=== PATIENT | male | born 1975 | race Caucasian/White ===

== ENCOUNTER 2018-09-27 14:12 | Inpatient (IN) | payer BC ==
[~2018-09-27] VITALS: Ht 180.3 cm; Wt 117.1 kg
--- NOTE | ~2018-09-27 | CON ---
[address] [address] CONSULTATION Name: NAKITA COATES Room: [address] IN .R.#: [id number] Admission: 09/27/18 Attend Phys: Nicholas Cordova MD Discharge: 09/28/18 Date of : 77 Report #: [id number] THIS REPORT FOR: //name// CC: Physician staff TACOS Cordova DATE OF SERVICE: 09/28/2018 HISTORY OF PRESENT ILLNESS: This is a 43-year-old male patient who was seen by me to evaluate the patient for any neurological etiology for the patient's episode of passing out. The patient, in fact, had 3 episodes of passing out in a month and he may have passed out more than one time. I reviewed all the records and talked to the patient. He was able to slowly go down during this episode. He was not confused after this episode and he immediately came back to the baseline. He was flushed and diaphoretic during this episode. When the EMS came, his blood pressure was only 90 systolic. He does not know what his blood pressure was during other episodes. REVIEW OF SYSTEMS: Indicate that he is usually pretty healthy. He takes pain medication for the back. He has not taken any of those medications for a long time. His 14-point review of system was mostly unremarkable. PAST MEDICAL HISTORY: Positive for these episodes, but it happened this month only. FAMILY HISTORY: Pretty significant for cardiac problem on the mother's side and multiple members in the family have in early ages and he is going to have a Cardiology consult. SOCIAL HISTORY: He smokes very rarely and he drinks alcohol also very rarely. He feels back to his baseline. PHYSICAL EXAMINATION: GENERAL: His examination indicates he is alert, responsive. NEUROLOGIC: His speech, concentration, fund of knowledge and memory are at his baseline. Cranial nerve examination 2-12 is unremarkable. His strength, sensation, reflexes and cerebellar signs are unremarkable. He has no papilledema. CARDIAC EXAMINATION: Appears unremarkable. LUNGS: He has no respiratory difficulty. VITAL SIGNS: His blood pressure is 125/75. His pulse is 67 and temperature is 98.1. LABORATORY DATA: His white count is 6.5. He did not have any [place] [address] CONSULTATION Name: JANENENAKITA DICK Herlinda Room: [address]#: [id number] Admission: 09/27/18 Attend Phys: Nicholas Cordova MD Discharge: 09/28/18 Date of : 77 Report #: [id number] IMPRESSION AND PLAN: This patient's spell is most likely cardiac. This is especially true with such an extensive family history. His blood pressure was actually low when he was seen and if he has a seizure or TIA typically, his blood pressure should go high. He does complain of some nonspecific brain symptoms and he did pass out and because of that, it may be desirable to do the MRI to make sure there is no etiology there. He already had an EEG. I discussed the MRI with him. I discussed his potential complication. He said he had some metal in his teeth and titanium from the vasectomy. I told him to make sure he lets the MRI people know that. They are going to fill up a questionnaire anyway. If that workup is unremarkable, main workup is going to be Cardiology in this patient. Thank you very much for this referral. We will follow this patient along with you. By: 1150 [id number] Gomez MD /lamonte
--- NOTE | ~2018-09-27 | EEG ---
[address] [address] EEG STUDY REPORT Name: NAKITA COATES Room: [address] IN M.R.#: [id number] Admission: 09/27/18 Attend Phys: Nicholas Cordova MD Discharge: 09/28/18 Date of : 77 Report #: [id number] THIS REPORT FOR: //name// CC: Physician staff TACOS Cordova DATE OF SERVICE: 09/28/2018 This patient is being evaluated for syncope. EEG was done by placing the electrodes by standard 10-20 system of electrode placement. Both referential and sequential montages were used for recording. Background activity in this patient's EEG is about 9 Hz and 30 microvolt. The patient became drowsy that is associated with bilateral slowing and vertex sharp waves. Photic stimulation was unremarkable. Throughout the record, no active epileptiform activity was noticed. IMPRESSION: This patient's EEG is within normal limits. Thank you very much for this referral. By: 1639 2055Claudy Gomez MD /nt
[2018-09-27 14:13] VITALS: BP 132/73
[2018-09-27 14:54] LABS: ABSOLUTE BASOPHILS 0.1 thou/uL (0.0-0.2); ABSOLUTE EOSINOPHILS 0.1 thou/uL (0.0-0.7); ABSOLUTE LYMPHOCYTES 1.6 thou/uL (0.8-5.3); ABSOLUTE MONOCYTES 0.4 thou/uL (0.0-1.2); ABSOLUTE NEUTROPHILS 3.3 thou/uL (1.6-8.1); BASOPHILS 1.1 %; EOSINOPHILS 1.4 %; HEMATOCRIT 43.6 % (42.0-52.0); HEMOGLOBIN 15.3 gm/dL (14.0-18.0); LYMPHOCYTES 29.5 %; MCH 30.4 pg (26.0-34.0); MCV 86.8 fL (80.0-100.0); MONOCYTES 6.9 %; MPV 8.9 fl. (7.2-11.1); NUCLEATED RBCS 0 /100WBC; PLATELET COUNT* 215 thou/uL (150-400); POLYS 61.1 %; RBC 5.03 mil/uL (4.50-6.00); RDW-CV 13.4 % (10.5-14.5); WBC 5.4 thou/uL (4.0-11.0)
[2018-09-27 15:12] LABS: ALBUMIN 3.8 g/dL (3.4-5.0); ALKALINE PHOSPHATASE 70 U/L (46-116); ANION GAP 12 mmol/L (7-16); BUN 13 mg/dL (7-18); CALCIUM 8.8 mg/dL (8.5-10.1); CHLORIDE 103 mmol/L (98-107); CO2 26 mmol/L (21-32); CREATININE 1.5 mg/dL (0.6-1.3); GLUCOSE 129 mg/dL (70-99); LIPASE 116 U/L (73-393); POTASSIUM 3.9 mmol/L (3.5-5.1); SGOT 28 U/L (15-37); SGPT 59 U/L (30-65); SODIUM 141 mmol/L (136-145); TOTAL BILIRUBIN 0.4 mg/dL (<0.1-1.0); TOTAL PROTEIN 7.9 g/dL (6.4-8.2); TROPONIN-I LEVEL <0.06 ng/mL (<0.06)
[2018-09-27 15:44] LABS: APTT 25.8 Seconds (25.0-31.3); PROTIME 10.3 Seconds (9.20-11.50)
[2018-09-27 15:53] LABS: URINE BILIRUBIN NEGATIVE (Negative); URINE BLOOD NEGATIVE (Negative); URINE CLARITY CLEAR; URINE COLOR YELLOW; URINE GLUCOSE-RANDOM NEGATIVE (Negative); URINE KETONES NEGATIVE (Negative); URINE LEUKOCYTES-REFLEX NEGATIVE (Negative); URINE NITRITE-REFLEX NEGATIVE (Negative); URINE PROTEIN NEGATIVE (Negative); URINE UROBILINOGEN 0.2 E.U./dl (0.2-1.0)
[2018-09-27 16:01] LABS: AMP/METHAMP Negative (Negative); BARBITURATES Negative (Negative); BENZODIAZEPINES Negative (Negative); COCAINE Negative (Negative); METHADONE Negative (Negative); OPIATES Negative (Negative); PCP Negative (Negative); THC POSITIVE (Negative)
[2018-09-27 16:57] VITALS: BP 141/85
--- NOTE | 2018-09-27 16:57 | NUR ---
REPORT TO WALTER RAMIREZ
[2018-09-27 17:15] VITALS: BP 148/85
[2018-09-27] MEDS ORDERED: HYDROCODON-ACE1 EAC8 PO (18:04)
--- NOTE | 2018-09-27 18:41 | NUR ---
RECEIVED REPORT FROM EDITH IN ER. PT ARRIVED TO TELE FLOOR AROUND 1715, ASSUMED CARE. PT A&OX4, VSS. CLIENT SUCCESS DIRECTOR PLACED TRACING SR. ADMISSION ASSESSMENT, HISTORY AND EDUCATION COMPLETED CHARTED. PT DENIES PAIN OR DISCOMFORT. IV TO R AC INTACT AND INFUSING IVF. PT VERY STEADY ON FEET AND DOES NOT FEEL DIZZY AT THIS TIME, BUT FALL PRECAUTIONS IN PLACE FOR SAFETY. FAMILY AT BEDSIDE. PT TO BE NPO AFTER MIDNIGHT FOR CARDIO CONSULT. PT CURRENTLY FINISHING DINNER IN BED. CALL LIGHT IS WITHIN REACH. HOURLY ROUNDING PERFORMED.
[2018-09-27 20:00] VITALS: BP 124/79; BP 141/77
[2018-09-28] VITALS (7 sets, daily range): BP systolic 124–137; BP diastolic 55–86
--- NOTE | 2018-09-28 04:20 | NUR ---
ASSUMED PT CARE AT APPROX 1930. PT IS AWAKE AND ORIENTED X4. DENIES FEELING DIZZY. VSS ON ROOM AIR. TRACING SR ON TELE. DENIES PAIN/DISCOMFORT. RE-ASSESSMENT DONE AND CHARTED. REMINDED TO HAVE NOTHING BY MOUTH POST MIDNIGHT FOR CARDIOLOGY CONSULT. CALL LIGHT WITHIN REACH. HOURLY ROUNDING DONE FOR PT SAFETY.
[2018-09-28 04:53] LABS: ABSOLUTE EOSINOPHILS 0.1 thou/uL (0.0-0.7); ABSOLUTE MONOCYTES 0.6 thou/uL (0.0-1.2); ABSOLUTE NEUTROPHILS 3.8 thou/uL (1.6-8.1); BASOPHILS 0.7 %; EOSINOPHILS 1.3 %; HEMATOCRIT 38.2 % (42.0-52.0); HEMOGLOBIN 13.6 gm/dL (14.0-18.0); LYMPHOCYTES 30.8 %; MCH 30.9 pg (26.0-34.0); MCHC 35.6 g/dL (28.0-37.0); MCV 86.7 fL (80.0-100.0); MONOCYTES 8.4 %; MPV 8.9 fl. (7.2-11.1); NUCLEATED RBCS 0 /100WBC; PLATELET COUNT* 178 thou/uL (150-400); POLYS 58.8 %; RBC 4.41 mil/uL (4.50-6.00); RDW-CV 13.3 % (10.5-14.5); WBC 6.5 thou/uL (4.0-11.0)
[2018-09-28 05:19] LABS: ANION GAP 9 mmol/L (7-16); BUN 11 mg/dL (7-18); CALCIUM 8.3 mg/dL (8.5-10.1); CHLORIDE 109 mmol/L (98-107); CO2 26 mmol/L (21-32); CREATININE 1.2 mg/dL (0.6-1.3); GLUCOSE 108 mg/dL (70-99); SODIUM 144 mmol/L (136-145); TROPONIN-I LEVEL <0.06 ng/mL (<0.06)
--- NOTE | 2018-09-28 10:12 | EKG ---
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: Cy PACE : 1975 Requested By: Demi Osborne Order Number: [id number] MD: Eric Alvarado Measurements Intervals [place] Rate: 89 P: 93 NV: 128 QRS: 64 QRSD: 113 T: 18 QT: 367 QTc: 447 Interpretive Statements Sinus rhythm nonspecific t wave changes Baseline wander in lead(s) I,II,aVR No previous ECG available for comparison Electronically Signed On 09-28-2018 10:12:26 CDT by Eric Alvarado [email or web address] <ELECTRONICALLY SIGNED> By: Eric Alvarado MD, [facility] 09/28/18 1012 1416 1416 Eric Alvarado MD, [facility] /EPI
--- NOTE | 2018-09-28 13:00 | 2DMMODE ---
[place] [address] 2 D/M-MODE ECHOCARDIOGRAM Name: NAKITA COATES Room: [address] IN [facility]#: [id number] Admission: 09/27/18 Attend Phys: Nicholas Cordova MD Discharge: Date of : 77 Date of Service: 09/28/18 [facility] Report #: [id number] THIS REPORT FOR: //name// APPROVED REPORT Study performed: 09/28/2018 10:35:52 EXAM: Comprehensive 2D, Doppler, and color-flow Echocardiogram Patient Location: In-Patient Room #: 219 Status: routine BSA: 2.32 HR: 60 bpm BP: 125/75 mmHg Rhythm: NSR Other Information Study Quality: Good Indications Syncope 2D Dimensions IVSd: 10.51 (7-11mm) LVOT Diam: 20.01 (18-24mm) LVDd: 41.28 mm PWd: 8.40 (7-11mm) Ascending Ao: 25.85 (22-36mm) LVDs: 26.81 (25-40mm) Aortic Root: 26.58 mm Volumes Left Atrial Volume (Systole) LA ESV Index: 15.10 mL/m2 Aortic Valve AoV Peak Carson.: 1.43 m/s AO Peak Gr.: 8.18 mmHg LVOT Max P.93 mmHg AO Mean Gr.: 4.91 mmHg LVOT Mean P.61 mmHg LVOT Max V: 1.22 m/s AO V2 VTI: 32.78 cm LVOT Mean V: 0.77 m/s SHEEREN (VTI): 2.10 cm2 LVOT V1 VTI: 21.91 cm Mitral Valve E/A Ratio: 1.45 MV Decel. Time: 214.91 ms MV E Max Carson.: 0.96 m/[place] [address] 2 D/M-MODE ECHOCARDIOGRAM Name: NAKITA COATES Room: [address] IN [facility].#: [id number] Admission: 09/27/18 Attend Phys: Nicholas Cordova MD Discharge: Date of : 77 Date of Service: 09/28/18 [facility] [place] Report #: [id number] MV PHT: 62.32 ms MVA (PHT): 3.53 cm2 TDI E/Lateral E': 6.86 E/Medial E': 8.00 Medial E' Carson.: 0.12 m/s Lateral E' Carson.: 0.14 m/s Pulmonary Valve PV Peak Carson.: 1.00 m/s PV Peak Gr.: 4.02 mmHg Left Ventricle The left ventricle is normal size. There is normal LV segmental wall motion. There is normal left ventricular wall thickness. Left ventricular systolic function is normal. The left ventricular ejection fraction is within the normal range. LVEF is 55-60%. The left ventricular diastolic function is normal. Right Ventricle The right ventricle is normal size. The right ventricular systolic function is normal. Atria The left atrium size is normal. The right atrium size is normal. Aortic Valve The aortic valve is normal in structure. No aortic regurgitation is present. There is no aortic valvular stenosis. Mitral Valve The mitral valve is normal in structure. Trace mitral regurgitation. No evidence of mitral valve stenosis. Tricuspid Valve The tricuspid valve is normal in structure. There is no tricuspid valve regurgitation noted. Pulmonic Valve The pulmonary valve is normal in structure. There is no pulmonic valvular regurgitation. Great Vessels The aortic root is normal in size. IVC is normal in size and collapses >50% [place] [address] 2 D/M-MODE ECHOCARDIOGRAM Name: NAKITA COATES Room: [address] IN [facility]#: [id number] Admission: 09/27/18 Attend Phys: Nicholas Cordova MD Discharge: Date of : 77 Date of Service: 09/28/18 1300 Report #: [id number] Pericardium There is no pericardial effusion. <Conclusion> Left ventricular systolic function is normal. The left ventricular ejection fraction is within the normal range. <ELECTRONICALLY SIGNED> By: Eric Alvarado MD, FACC 09/28/18 1300 1300 1300 Eirc Alvarado MD, FAC /INF
--- NOTE | 2018-09-28 14:20 | NUR ---
ASSUMED CARE OF PT AT 0730. PT RESTING IN BED. FAMILY AT BEDSIDE. PT A&0X4, DENIES ANY PAIN OR SHORTNESS OF BREATH AT THIS TIME. PT NPO AT THIS TIME FOR CARDIOLOGY CONSULT. PT TRACING SR ON THE REQUISITION APPROVER. ON RA SAT UPPER 90'S. PT UP SBA. IVF. NEUROLOGY AND CARDIOLOGY CONSULT IN PLACE. PT GOAL FOR TODAY IS TO REMAIN FREE FROM SYNCOPAL EPISODES AND CHEST PAIN. PT TO HAVE ECHO, EEG AND MRI TODAY. MRI QUESTIONARE FILLED OUT AND PLACED IN FRONT OF CHART. AM ASSESSMENT CHARTED. MEDICATIONS PER AUG. PT REPOSITIONS SELF. HOURLY ROUNDING OBSERVED. BED IN LOW POSITION. CALL LIGHT WITHIN REACH. WILL CONTINUE PLAN OF CARE.
--- NOTE | 2018-09-28 18:59 | NUR ---
PT HAD MULTIPLE TESTS TODAY. DR AGUIRRE CALLED WITH EEG RESULTS. OKAY FOR DISCHARGE. DR DENISE CALLED STATING OKAY FOR DISCHARGE FROM CARDIOLOGY STANDPOINT. PT WILL HAVE HALTER MONITOR DELIVERED TO HOME. DISCHARGE ORDERS RECEIVED. DISCHARGE INSTRUCTIONS, CARE NOTES AND FOLLOW UP APPTS GIVEN TO PT. PT COMMUNICATES UNDERSTANDING OF DISCHARGE TEACHING. IV AND ASSEMBLER CAMPER REMOVED. PT DISCHARGED WITH ALL BELONGINGS AND PAPERWORK VIA WHEELCHAIR WITH NURSING STAFF TO SPOUSE OWN PERSONAL VEHICLE.
--- NOTE | 2018-09-29 10:34 | CON ---
[facility] [address] [place] [address] CONSULTATION Name: NAKITA COATES Room: [address] IN ..#: [id number] Admission: 09/27/18 Attend Phys: Nicholas Cordova MD Discharge: 09/28/18 Date of : 77 Report #: [id number] THIS REPORT FOR: //name// CC: Physician staff TACOS Cordova DATE OF SERVICE: 09/28/2018 HISTORY OF PRESENT ILLNESS: The patient is a 43-year-old white male who I was asked to see in the hospital after he had a syncopal spell. The patient has no previous history of heart disease. He does note that recently he has had occasional episodes he feels lightheaded, will have to sit down. Once occurred while he was shopping and another while he was at [employer] game. However, he was doing well until yesterday he went for lunch with a couple of friends. He had 2 beers. He then drove home. While driving home, he felt somewhat lightheaded. While he started to walk from the car into the house, he felt lightheaded. He noticed he had to lean against the wall. He then went down on one knee and laid on the ground. He denied any seizure activity, palpitations, chest pain, shortness of breath. He had had no recent vomiting, bleeding, fever. An ambulance picked him up. He was noted be hypotensive. He was admitted for further evaluation and treatment. He stays fairly active at work, but does get short of breath when he exerts himself. He has occasional chest tightness, it usually occurs when he lies in bed at night. It is not related to food. He has had no bleeding. PAST MEDICAL HISTORY: He has had no surgical procedures. He is on no chronic medications. He has had hydrocodone the past for chronic back pain. ALLERGIES: He has a previous intolerance to AMBIEN. FAMILY HISTORY: His grandfather had heart disease, when he was 48. SOCIAL HISTORY: He is . He and his live outside [place], [place]. 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 REVIEW OF SYSTEMS: He does snore at night. No history of peptic ulcer disease, liver disease, kidney disease, cancer, psychiatric illness, chronic skin condition. PHYSICAL EXAMINATION: GENERAL: Revealed a middle-aged male lying in bed, he appeared in no acute distress. VITAL SIGNS: Blood pressure 120/70, pulse 70, [place] [address] CONSULTATION Name: NAKITA COATES Room: [address] IN ..#: [id number] Admission: 09/27/18 Attend Phys: Nicholas Cordova MD Discharge: 09/28/18 Date of : 77 Report #: [id number] HEENT: He is anicteric. Conjunctivae pink. Mucous membranes are moist. NECK: Veins nondistended. No carotid bruits heard. NECK: Supple. CHEST: Clear to auscultation. CARDIAC: Regular rate and rhythm. ABDOMEN: Soft. EXTREMITIES: Had no edema, posterior tibial pulse 2+ bilaterally. SKIN: Warm, dry. NEUROLOGIC: Nonfocal. LYMPH: No adenopathy. MUSCULOSKELETAL: No joint effusions. LABORATORY DATA: ECG on admission showed a sinus rhythm. There was a short RI interval, nonspecific ST-segment changes. Overnight, on the monitor, he remained in a sinus rhythm. His workup in the Emergency Room yesterday, he had a portable chest x-ray that showed normal heart size, clear lung dye. His lab work: Sodium 144, creatinine 1.2, glucose 108. His liver function studies were normal. Troponin 0.06. TSH 1.7. B12 396. Drug screen positive for marijuana. White blood cell count 6.5, hemoglobin 13.6. IMPRESSION AND RECOMMENDATIONS: 1. Recurrent lightheaded spells. No obvious syncope. No evidence of structural heart disease. Recommend echocardiogram. I would consider discharging the patient with an event recorder 2. Snoring at night. Consider sleep apnea. 3. Chronic back pain. <ELECTRONICALLY SIGNED> By: Eric Alvarado MD, FACC 09/29/18 1034 [id number] Alvarado MD, FACC /nt
== END 2018-09-28 19:00 | disposition home or self-care (01) | DRG 312 ==
LOC: M.ERS 14:12 → M.TBA-ER 16:08 → M.2W 16:08
PROVIDERS: Physician Assistant; ADMIT Family Medicine
DX: R55 Syncope and collapse (principal); N17.0 Acute kidney failure with tubular necrosis; N18.9 Chronic kidney disease, unspecified; M54.9 Dorsalgia, unspecified; Z88.8 Allergy status to other drugs, medicaments and biological substances; Z82.49 Family history of ischemic heart disease and other diseases of the circulatory system; Z87.891 Personal history of nicotine dependence